=== PATIENT | male | born 1995 | race African-American/Black ===

== ENCOUNTER 2022-10-27 08:18 | Emergency (ER) | payer OTHER, SELFPAY ==
[2022-10-27 08:29] VITALS: BP 136/89; PULSE 76; RESP 16; TEMP 36.7; O2SAT 100
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
== END 2022-10-27 08:59 | disposition home or self-care (01) ==
LOC: ANHED 08:53
PROVIDERS: Emergency Provider Emergency Medicine
DX: S16.1XXA Strain of muscle, fascia and tendon at neck level, initial encounter (principal); V43.52XA Car driver injured in collision with other type car in traffic accident, initial encounter
CPT/HCPCS: 99283